=== PATIENT | male | born 1995 | race American Indian/Alaskan Native ===

== ENCOUNTER 2019-05-16 12:05 | Emergency (ER) | payer MEDICAID ==
[2019-05-16 13:17] VITALS: BP 107/57
--- NOTE | 2019-05-16 13:23 | Emergency Department Report ---
ED General Adult HPI - General Chief complaint: Back Pain/Injury Stated complaint: SCIATICA PAIN Time Seen by Provider: 05/16/19 13:18 Source: patient, EMS Mode of arrival: Ambulatory Limitations: No Limitations - History of Present Illness Initial comments: 23 y/o male resident [place] [facility] presents to ED requesting medication refill for psych medictions until - Related Data Allergies Allergy/AdvReac Type Severity Reaction Status Date / Time quetiapine [From Seroquel] Allergy Swelling Verified 05/16/19 12:07 risperidone [From Risperdal] Allergy Swelling Verified 05/16/19 12:07 ED Review of Systems ROS: Stated complaint: SCIATICA PAIN Other details as noted in HPI ED Past Medical Hx - Past Medical History Previous Medical History?: Yes Hx Psychiatric Treatment: Yes (PTSD, bipolar, depression) - Surgical History Past Surgical History?: Yes Additional Surgical History: ingrown toenail removed - Social History Smoking Status: Current Every Day Smoker Substance Use Type: Alcohol ED Physical Exam - General Limitations: No Limitations ED Course Vital Signs 05/16/19 13:15 Temperature 98.3 F Pulse Rate 66 Respiratory 18 Rate Blood Pressure 107/57 O2 Sat by Pulse 98 Oximetry Critical care attestation.: If time is entered above; I have spent that time in minutes in the direct care of this critically ill patient, excluding procedure time. ED Disposition Condition: Stable
== END 2019-05-16 13:30 | disposition home or self-care (01) ==
LOC: ED 12:05
DX: M54.30 Sciatica, unspecified side (principal); F31.9 Bipolar disorder, unspecified; F10.10 Alcohol abuse, uncomplicated; F17.200 Nicotine dependence, unspecified, uncomplicated; Z76.0 Encounter for issue of repeat prescription; Z88.8 Allergy status to other drugs, medicaments and biological substances
CPT/HCPCS: 99283